=== PATIENT | male | born 1995 | race African-American/Black ===

== ENCOUNTER 2022-05-13 15:20 | Emergency (ER) | payer BC ==
[~2022-05-13] VITALS: Ht 172.7 cm; Wt 118.2 kg
[2022-05-13 15:23] VITALS: BP 128/65
[2022-05-13 16:17] LABS: COVID AG,FIA SOURCE NASOPHARYNGEAL
[2022-05-13 16:21] LABS: BASOPHILS % (AUTO) 0.7 % (0.0-2.0); HEMATOCRIT 38.4 % (41-53); HEMOGLOBIN 12.9 g/dL (13.5-17.5); LYMPHOCYTES # (AUTO) 1.2 K/uL (1.0-4.8); LYMPHOCYTES % (AUTO) 18.8 % (22.0-44.0); MEAN CORPUSCULAR HEMOGLOBIN 29.9 pg (26.0-34.0); MEAN CORPUSCULAR HGB CONC 33.7 G/dL (31.0-37.0); MEAN CORPUSCULAR VOLUME 89 fL (80-100); MONOCYTES # (AUTO) 0.7 K/uL (0.1-1.0); MONOCYTES % (AUTO) 11.3 % (2.0-9.0); NEUTROPHILS # (AUTO) 4.4 K/uL (1.8-7.7); NEUTROPHILS % (AUTO) 67.2 % (40.0-70.0); PLATELET COUNT (AUTO) 378 K/uL (150-450); RED BLOOD CELL COUNT(AUTO) 4.32 MIL/uL (4.50-5.90); RED CELL DISTRIBUTION WIDTH 12.4 % (11.5-14.5)
[2022-05-13 16:32] LABS: ANION GAP 7 mmol/L (8-16); CALCIUM, TOTAL 9.5 mg/dL (8.8-10.5); CARBON DIOXIDE 28 mmol/L (22-29); CHLORIDE 101 mmol/L (98-107); CREATININE 1.26 mg/dL (0.60-1.30); GLOMERULAR FILTR. RATE CALC > 60 mL/min (>60); GLUCOSE,RANDOM 92 mg/dL (70-110); POTASSIUM 3.8 mmol/L (3.5-5.1); SODIUM SERUM 136 mmol/L (136-145); UREA NITROGEN, BLOOD 10 mg/dL (7-18)
== END 2022-05-13 17:18 | disposition home or self-care (01) ==
LOC: EMS 15:20
DX: U07.1 COVID-19 (principal)
CPT/HCPCS: 80048; 85025; 99283

== ENCOUNTER 2022-08-19 18:46 | Emergency (ER) | payer BC ==
[~2022-08-19] VITALS: Ht 170.2 cm; Wt 81.8 kg
[2022-08-19] MEDS ORDERED: ELVI1TAB3 PO (19:10)
[2022-08-19] MEDS ORDERED: IBUPROFEN 600 MG TABLET PO ONE (21:15)
[2022-08-19] MEDS ORDERED: ACETAMINOPHEN 500 MG TABLET PO ONE (21:15)
[2022-08-19 21:28] LABS: COVID AG,FIA SOURCE NASOPHARYNGEAL
[2022-08-19 21:50] LABS: INFLUENZA TYPE B NEGATIVE FOR TYPE B (NEGATIVE)
[2022-08-19 21:53] LABS: INFLUENZA TYPE A POSITIVE FOR TYPE A (NEGATIVE)
[2022-08-19] MEDS ORDERED: OSEL75 PO (22:01)
[2022-08-19 22:40] VITALS: BP 128/77
== END 2022-08-19 22:47 | disposition home or self-care (01) ==
LOC: EMS 18:46
DX: J11.1 Influenza due to unidentified influenza virus with other respiratory manifestations (principal); Z20.822 Contact with and (suspected) exposure to COVID-19
CPT/HCPCS: 87804; 99283

== ENCOUNTER 2025-07-21 06:11 | Inpatient (IN) | payer BC, MEDICAID, OTHER ==
[~2025-07-21] VITALS: Ht 170.2 cm; Wt 85.0 kg
[~2025-07-21 06:11] MED LIST: ELVI1TAB3 PO; OSEL75CA45 PO
[2025-07-21 07:27] LABS: COVID AG,FIA SOURCE NASAL SWAB
[2025-07-21 07:29] LABS: PLATELET COUNT (AUTO) 371 K/uL (150-450); RED BLOOD CELL COUNT(AUTO) 5.17 MIL/uL (4.50-5.90); RED CELL DISTRIBUTION WIDTH 13.0 % (11.5-14.5); WHITE BLOOD COUNT (AUTO) 5.9 K/uL (4.5-11.0)
[2025-07-21 07:36] LABS: CALCIUM, TOTAL 9.2 mg/dL (8.8-10.5); CREATININE 0.67 mg/dL (0.60-1.30); GLOMERULAR FILTR. RATE CALC > 60 mL/min (>60); GLUCOSE,RANDOM 100 mg/dL (70-110); SODIUM SERUM 141 mmol/L (136-145); UREA NITROGEN, BLOOD 10 mg/dL (7-18)
[2025-07-21 07:48] LABS: SARS-COV2 (COVID) ANTIGEN,FIA Negative (Negative)
[2025-07-21] MEDS ORDERED: ZOLPIDEM TARTRATE 10 MG TABLET PO PRN (08:15)
[2025-07-21 10:23] VITALS: O2SAT 97
[2025-07-21] MEDS ORDERED: DOCUSATE SODIUM 100 MG CAPSULE PO PRN (12:45)
[2025-07-21] MEDS ORDERED: GuaiFENesin/D-METHORPHAN [SUGAR-FREE] 200-20MG/10 ML SYRUP UDCUP PO PRN (12:45)
[2025-07-21] MEDS ORDERED: MAGNESIUM HYDROXIDE SUSPENSION 30 ML UDCUP PO PRN (12:45)
[2025-07-21] MEDS ORDERED: ACETAMINOPHEN 325 MG TABLET PO PRN (12:45)
[2025-07-21] MEDS ORDERED: PETROLATUM,WHITE 28 GM JELLY TP PRN (12:45)
[2025-07-21] MEDS ORDERED: IBUPROFEN 400 MG TABLET PO PRN (12:45)
[2025-07-21] MEDS ORDERED: ONDANSETRON 4 MG TABLET PO PRN (12:45)
[2025-07-21] MEDS ORDERED: ALBUTEROL SULFATE HFA 90 MCG/PUFF 8 GM INHALER IH PRN (12:45)
[2025-07-21] MEDS ORDERED: MAG HYDROX/ALUMINUM HYD/SIMETH ES 30 ML SUSPENSION UDCUP PO PRN (12:45)
[2025-07-21] MEDS ORDERED: NICOTINE 14 MG/24 HOUR PATCH TD PRN (12:45)
[2025-07-21] MEDS ORDERED: LOPERAMIDE HCL 2 MG CAPSULE PO PRN (12:45)
[2025-07-21 13:00] VITALS: BP 149/102; PULSE 89; RESP 18; TEMP 98; O2SAT 98
[2025-07-21] MEDS: BICTEGRAV/EMTRICIT/TENOFOV ALA 50-200-25 MG TABLET PO ONE (13:20)
[2025-07-21 16:44] LABS: APPEARANCE,URINE HAZY (CLEAR); GLUCOSE, URINE (UA) NEGATIVE (NEGATIVE); LEUKOCYTE ESTERASE ,URINE NEGATIVE (NEGATIVE); NITRATE,URINE NEGATIVE (NEGATIVE); OCCULT BLOOD,URINE NEGATIVE (NEGATIVE); PH,URINE DRUG SCREEN 6.5 (5.0-8.0); SPECIFIC GRAVITIY, URINE 1.020 (1.003-1.030)
[2025-07-21 16:51] LABS: ALCOHOL, URINE DRUG SCREEN NEGATIVE (NEGATIVE); AMPHET/METH SCREEN,URINE NEGATIVE (NEGATIVE); BARBITURATE SCREEN, URINE NEGATIVE (NEGATIVE); CANNABINOID SCREEN,URINE POSITIVE (NEGATIVE); COCAINE SCREEN,URINE NEGATIVE (NEGATIVE); METHADONE SCREEN, URINE NEGATIVE (NEGATIVE)
[2025-07-21 21:31] VITALS: BP 142/91; PULSE 91; RESP 18; TEMP 98.1
[2025-07-22 07:37] LABS: PLATELET COUNT (AUTO) 351 K/uL (150-450); RED BLOOD CELL COUNT(AUTO) 5.13 MIL/uL (4.50-5.90); RED CELL DISTRIBUTION WIDTH 12.9 % (11.5-14.5); WHITE BLOOD COUNT (AUTO) 4.3 K/uL (4.5-11.0)
[2025-07-22 08:07] LABS: ASPARTATE AMINOTRANSFERASE 30 U/L (15-37); CALCIUM, TOTAL 9.1 mg/dL (8.8-10.5); CHOL/HDL RATIO 4.9 (4.2-7.3); CREATININE 0.85 mg/dL (0.60-1.30); GLOMERULAR FILTR. RATE CALC > 60 mL/min (>60); GLUCOSE,RANDOM 84 mg/dL (70-110); LDL CHOL (CALC.) 122 mg/dL (0-130); SODIUM SERUM 141 mmol/L (136-145); TOTAL PROTEIN, SERUM 7.2 g/dL (6.4-8.2); UREA NITROGEN, BLOOD 8 mg/dL (7-18)
[2025-07-22 09:05] VITALS: BP 135/96; PULSE 99; RESP 16; TEMP 98.1; O2SAT 99
[2025-07-22] MEDS: POTASSIUM CHLORIDE 20 MEQ ER TABLET PO ONE (09:17)
[2025-07-22] MEDS: BICTEGRAV/EMTRICIT/TENOFOV ALA 50-200-25 MG TABLET PO SCH (10:37)
[2025-07-22] MEDS: ESCITALOPRAM OXALATE 10 MG TABLET PO SCH (14:49)
[2025-07-22 20:45] VITALS: BP 148/98; PULSE 91; RESP 18; TEMP 97.3; O2SAT 99
[2025-07-23 09:56] VITALS: BP 142/96; PULSE 87; RESP 18; TEMP 98.1; O2SAT 100
[2025-07-23 20:08] VITALS: BP 135/90; PULSE 83; RESP 18; TEMP 97.8; O2SAT 99
[2025-07-24 09:43] VITALS: BP 141/97; PULSE 100; RESP 18; TEMP 98; O2SAT 97
[2025-07-24 20:24] VITALS: BP 135/84; PULSE 68; RESP 18; TEMP 97; O2SAT 98
[2025-07-25] MEDS: ESCITALOPRAM OXALATE 10 MG TABLET PO SCH (09:26)
[2025-07-25 09:33] VITALS: BP 140/94; PULSE 98; RESP 18; TEMP 97.4; O2SAT 98
[2025-07-25 20:00] VITALS: BP 153/97; PULSE 68; RESP 18; TEMP 97.8; O2SAT 100
[2025-07-26 10:22] VITALS: BP 136/109; PULSE 102; RESP 18; TEMP 97.8; O2SAT 97
[2025-07-26 20:00] VITALS: BP 153/92; PULSE 83; RESP 18; TEMP 98.2; O2SAT 99
[2025-07-27] MEDS ORDERED: ESCI-8 PO ×2 (08:18→22:28)
[2025-07-27] MEDS ORDERED: BICT1TAB PO ×2 (08:19→22:28)
[2025-07-27] MEDS ORDERED: AMLO-257 PO ×2 (08:20→22:28)
[2025-07-27 08:28] VITALS: BP 136/98; PULSE 68; RESP 18; TEMP 97.7; O2SAT 98
== END 2025-07-27 11:03 | disposition home or self-care (01) | DRG 751 ==
LOC: EMS 06:16 → 3EC 10:53
PROVIDERS: ADMIT Psychiatry & Neurology Child & Adolescent Psychiatry; ATTEND Psychiatry & Neurology Child & Adolescent Psychiatry
PROC: GZ58ZZZ Individual Psychotherapy, Cognitive-Behavioral (ICD-10-PCS; 2025-07-22)
PROC: GZ56ZZZ Individual Psychotherapy, Supportive (ICD-10-PCS; 2025-07-22)
PROC: GZHZZZZ Group Psychotherapy (ICD-10-PCS; principal; 2025-07-26)
DX: F33.2 Major depressive disorder, recurrent severe without psychotic features (principal); R45.851 Suicidal ideations; E87.6 Hypokalemia; F10.10 Alcohol abuse, uncomplicated; Y90.0 Blood alcohol level of less than 20 mg/100 ml; Z20.822 Contact with and (suspected) exposure to COVID-19; F12.10 Cannabis abuse, uncomplicated; I10 Essential (primary) hypertension; Z79.899 Other long term (current) drug therapy
CPT/HCPCS: 80048; 80053; 80061; 80307; 81003; 83036; 84132; 84443; 85025; 99285; G0480